=== PATIENT | female | born 1995 | race Hispanic/Latino ===

== ENCOUNTER 2022-06-12 22:25 | Emergency (ER) | payer OTHER ==
[~2022-06-12] VITALS: Ht 157.5 cm; Wt 95.3 kg
[2022-06-12] MEDS ORDERED: ACETAMINOPHEN 500 MG TABLET PO ONE (23:00)
[2022-06-12 23:51] LABS: BASOPHILS % (AUTO) 0.6 % (0.0-5.0); LYMPHOCYTES % (AUTO) 19.7 % (21.0-51.0); MEAN CORPUSCULAR HEMOGLOBIN 27.4 pg (27.0-33.0); MEAN CORPUSCULAR HGB CONC 33.6 g/dL (32.0-36.0); MEAN CORPUSCULAR VOLUME 81.5 fL (79-99); MONOCYTES % (AUTO) 9.1 % (3.0-13.0); NEUTROPHILS % (AUTO) 70.2 % (40.0-77.0); PLATELET COUNT (AUTO) 198 K/uL (130-400); RED CELL DISTRIBUTION WIDTH 12.5 % (11.0-15.5); WHITE BLOOD COUNT (AUTO) 4.8 K/uL (4.8-10.8)
[2022-06-12 23:57] LABS: APPEARANCE,URINE CLEAR (CLEAR); BILIRUBIN,URINE SMALL (NEGATIVE); COLOR,URINE YELLOW (YELLOW); GLUCOSE, URINE (UA) NEGATIVE (NEGATIVE); KETONES,URINE 5 mg/dL (NEGATIVE); LEUKOCYTE ESTERASE ,URINE NEGATIVE (NEGATIVE); NITRATE,URINE NEGATIVE (NEGATIVE); OCCULT BLOOD,URINE NEGATIVE (NEGATIVE); PH,URINE 6.5 (5.0-8.0); PROTEIN,URINE TRACE mg/dL (NEGATIVE)
[2022-06-13 00:01] LABS: POTASSIUM 3.8 mmol/L (3.5-5.1)
[2022-06-13 00:05] LABS: ALBUMIN 3.6 g/dL (3.5-5.0); TOTAL PROTEIN, SERUM 9.1 g/dL (6.0-8.3)
[2022-06-13 00:05] LABS: HCG,QUALITATIVE URINE NEGATIVE (NEGATIVE)
[2022-06-13 00:17] LABS: BACTERIA,URINE None Seen /HPF (None Seen); RBC,URINE None Seen /HPF (0-1); WBC,URINE None Seen /HPF (0-1)
[2022-06-13 00:18] LABS: MUCUS,URINE Rare LPF (None Seen); SQUAMOUS EPITHELIAL CELL,UR Rare /HPF (0-2)
[2022-06-13] MEDS ORDERED: CEFTRIAXONE 1G VIAL ONE (00:30)
[2022-06-13] MEDS ORDERED: CEFTRIAXONE 1G VIAL IVP ONE (00:30)
[2022-06-13] MEDS ORDERED: OSEL75 PO (00:35)
[2022-06-13 00:50] VITALS: BP 135/82
== END 2022-06-13 00:48 | disposition home or self-care (01) ==
LOC: EDH 22:25
DX: N39.0 Urinary tract infection, site not specified (principal); J10.1 Influenza due to other identified influenza virus with other respiratory manifestations; Z20.822 Contact with and (suspected) exposure to COVID-19; Z87.440 Personal history of urinary (tract) infections
CPT/HCPCS: 99284; 87635; 80053; 85025; 87040 ×2; 87804 ×2; 83605; 81001; 81025; 36415; 96374; C9803; J0696

== ENCOUNTER 2022-06-17 16:13 | Emergency (ER) | payer OTHER ==
[~2022-06-17] VITALS: Ht 160 cm; Wt 103.9 kg
[~2022-06-17 16:13] MED LIST: OSEL75 PO
[2022-06-17 16:18] VITALS: BP 137/82
[2022-06-17 16:40] LABS: APPEARANCE,URINE CLEAR (CLEAR); BILIRUBIN,URINE MODERATE (NEGATIVE); COLOR,URINE YELLOW (YELLOW); GLUCOSE, URINE (UA) NEGATIVE (NEGATIVE); KETONES,URINE NEGATIVE (NEGATIVE); LEUKOCYTE ESTERASE ,URINE TRACE (NEGATIVE); NITRATE,URINE NEGATIVE (NEGATIVE); OCCULT BLOOD,URINE SMALL (NEGATIVE); PROTEIN,URINE 100 mg/dL (NEGATIVE); UROBILINOGEN,URINE 0.2 mg/dL (0.2-1.0)
[2022-06-17 16:43] LABS: HEMATOCRIT 40.6 % (36-48); MEAN CORPUSCULAR HEMOGLOBIN 26.9 pg (27.0-33.0); MEAN CORPUSCULAR HGB CONC 33.7 g/dL (32.0-36.0); MEAN CORPUSCULAR VOLUME 79.8 fL (79-99); PLATELET COUNT (AUTO) 115 K/uL (130-400); RED BLOOD CELL COUNT(AUTO) 5.09 MIL/uL (4.00-5.50); RED CELL DISTRIBUTION WIDTH 13.2 % (11.0-15.5); WHITE BLOOD COUNT (AUTO) 4.2 K/uL (4.8-10.8)
[2022-06-17 16:47] LABS: HCG,QUALITATIVE URINE NEGATIVE (NEGATIVE)
[2022-06-17 16:49] LABS: BACTERIA,URINE Moderate /HPF (None Seen); SQUAMOUS EPITHELIAL CELL,UR Moderate /HPF (0-2)
[2022-06-17 16:56] LABS: CREATININE 1.1 mg/dL (0.5-1.5)
[2022-06-17 17:00] LABS: ALBUMIN 2.9 g/dL (3.5-5.0)
[2022-06-17 17:17] LABS: BAND NEUTROPHILS % (MANUAL) 1 % (0-2); LYMPHOCYTES % (MANUAL) 17 % (22-44); MAN.DIFF COMMENT-IMPRESSION MANUAL DIFFERENTIAL; MONOCYTES % (MANUAL) 3 % (2-9); SEGMENTED NEUTROPHILS % 79 % (40-70)
[2022-06-17 17:19] LABS: PLATELET MORPHOLOGY COMMENT SLIGHTLY DECREASED
[2022-06-17] MEDS ORDERED: POTASSIUM BICARB/CIT AC 25 MEQ TABLET.EFF PO ONE (17:30)
[2022-06-17] MEDS ORDERED: CEFTRIAXONE 1G VIAL IVP ONE (17:30)
[2022-06-17] MEDS ORDERED: 0.9%NACL 1000ML 1,000 ML IV SCH (17:30)
[2022-06-17] MEDS ORDERED: CEFTRIAXONE 1G VIAL IM ONE (17:30)
[2022-06-17] MEDS ORDERED: IBUPROFEN 800 MG TAB PO ONE (17:30)
[2022-06-17] MEDS ORDERED: ACETAMINOPHEN 500 MG TABLET PO ONE (17:30)
[2022-06-17] MEDS ORDERED: CEPH500B PO (18:54)
[2022-06-17] MEDS ORDERED: IBUP-2071 PO (18:54)
[2022-06-17] MEDS ORDERED: POTA-187 PO (18:57)
== END 2022-06-17 19:36 | disposition home or self-care (01) ==
LOC: EDH 16:13
DX: U07.1 COVID-19 (principal)
CPT/HCPCS: 99284; 87635; 96374; 96361; 80053; 83690; 85025; 87040 ×2; 87088; 87804 ×2; 83605; 81001; 81025; 36415; C9803; J7030; J0696